=== PATIENT | male | born 1980 | race Caucasian/White ===

== ENCOUNTER 2023-02-24 19:32 | Emergency (ER) | payer SELFPAY ==
[2023-02-24 19:43] VITALS: BP 176/130; PULSE 92; RESP 18; TEMP 36.8; O2SAT 99; BMI 23.7
--- NOTE | 2023-02-24 19:59 | ED_ITS ---
HPI - Extremity Problem General: Chief complaint: Extremity Injury, Lower Stated complaint: insect bite to right foot Time Seen by Provider: 02/24/23 19:58 History of Present Illness: Patient comes in today for infection to the second toe on the right foot. Patient noticed the abnormality to the toe yesterday when looking at his feet. Patient noticed purulent drainage today. 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 . Patient appears nontoxic. Patient denies any fever, or nausea or vomiting. Patient reports no diabetes. Associated symptoms: Deny chest pain or fever(s) Review of Systems General: Reports: 10 or more systems reviewed and unremarkable except in HPI and below Const: Denies: fever(s) or body aches ENMT: Denies: throat pain Card: Denies: chest pain Resp: Denies: dyspnea GI: Denies: nausea, vomiting, diarrhea or constipation : Denies: difficulty urinating Musc: Reports: extremity pain Skin/Breast: Reports: nail changes Neuro: Denies: headache(s) Physical Exam Const: COMMON NORMALS: alert HENMT: COMMON NORMALS: normocephalic HEAD & SCALP: normocephalic THROAT: posterior oropharynx normal Neck/C-Spine: COMMON NORMALS: full ROM Resp: COMMON NORMALS: normal respiratory effort and clear to auscultation bilaterally AUSCULTATION: clear to auscultation bilaterally Cardio: COMMON NORMALS: regular rate RATE: regular rate Back/Pelvis: COMMON NORMALS: thoracic and lumbar spine normal to inspection Extremity: RIGHT LOWER EXTREMITY: Yes foot & digits (Redness to the distal second toe with purulent drainage from the nailbed) Right foot and digits: Yes inspection, Yes palpation, Yes ROM and Yes neurovascular exam Neuro: SENSORIUM/ORIENTATION: Yes alert Skin: NAILS: discolored (Second toe right foot, purulent drainage) Course Vital Signs: Vital signs: Vital Signs Temperature 98.3 F 02/24/23 19:43 Pulse Rate 92 02/24/23 19:43 Respiratory Rate 18 02/24/23 19:43 Blood Pressure 176/130 02/24/23 19:43 Pulse Oximetry 99 02/24/23 19:43 Oxygen Delivery Me thod Room Air 02/24/23 19:43 MDM - Extremity (Nontraumatic) Medical Decision Making Patient comes in for a concern for an insect bite to his toe. On exam we note purulent drainage coming out from under the second toe nailbed. Patient denies any nausea vomiting or fever. Patient denies diabetes. Patient does have neuropathy in both feet. Differential diagnosis includes but not limited to osteomyelitis, paronychia, cellulitis. X-ray noted no obvious signs of osteomyelitis. Patient was started on antibiotics Levaquin 500 mg daily by mouth. Patient was also recommended use mupirocin ointment to the nailbed. Patient reported understanding of care plan and need for follow-up for further evaluation and treatment. Discharge Plan Discharge Patient Disposition: Home Clinical Impression: Infection of nailbed of toe of right foot Peripheral neuropathy Qualifiers: Peripheral neuropathy type: polyneuropathy, other Qualified Code(s): G62.89 - Other specified polyneuropathies Condition: Stable Prescriptions: New levofloxacin 500 mg tablet 500 mg PO DAILY 10 Days Qty: 10 0RF Discharge Orders: Discharge ED (Routine); Ordered 02/24/23 Ordered By: Brooks Wang Discharge Diet: Usual diet Discharge Activity: Increase activity as tolerated Patient Instructions: Paronychia (ED) Activity Restrictions/Additional Instructions: Clean toe and foot with soap and water 2 times daily. Apply antibiotic ointment to the toenail and cover with gauze or clean sock. Take oral antibiotics as directed. Follow-up with application penetration tester for further evaluation and treatment. Return to ER for worsening symptoms such as fever greater than 100.4, increasing redness and swelling to the foot, or nausea and vomiting and inability to hold down fluids. Coding Level of Care Code ED Data Center Architect for Almaz Ureña
--- NOTE | 2023-02-24 20:08 | XRR_ITS ---
PROCEDURE INFORMATION: Exam: XR Right Foot Exam date and time: 02/24/2023 8:16 PM Age: 43 years old Clinical indication: Other: Insect bite; Prior surgery; Surgery date: 6+ months; Surgery type: RT foot; Additional info: Infection toe TECHNIQUE: Imaging protocol: Radiologic exam of the right foot. Views: 3 or more views. COMPARISON: No relevant prior studies available. FINDINGS: Bones/joints: Previous resection of the distal 1st metatarsal. Severe degenerative changes of the 1st metatarsophalangeal joint. Old healed fracture in the distal 2nd metatarsal. No acute fracture or bone destruction identified. Soft tissues: Normal. XR/XR foot RT min 3V* [id number] IMPRESSION: 1. No acute findings.
[2023-02-24] MEDS: mupirocin oint 22 gm 1 APPLIC TOPICAL (20:43)
[2023-02-24] MEDS: levoFLOXacin 500 mg Tablet PO (20:43)
--- NOTE | 2023-02-25 08:49 | DCPLANNER ---
Addendum entered by Azul Blount 02/26/23 07:33: manager cancer received the following message from the ortho clinic regarding follow up appointment: Pts vm is full will try to call again tomorrow Original Note: manager cancer had message to schedule a follow up appointment for patient with podiatry. manager cancer sent patients information to the front office staff at podiatry. Patients information will be printed and reviewed. Clinic will call patient with appointment information.
--- NOTE | 2023-02-27 13:14 | DCPLANNER ---
crm manager called patient due to no primary care physician - no answer at this time, voicemail box is full
== END 2023-02-24 20:51 | disposition home or self-care (01) ==
PROVIDERS: Emergency Provider Nurse Practitioner Family
DX: L03.031 Cellulitis of right toe (principal); G62.89 Other specified polyneuropathies
CPT/HCPCS: 73630; 99283

== ENCOUNTER 2023-05-08 08:55 | Emergency (ER) | payer SELFPAY ==
[2023-05-08 08:56] VITALS: BMI 20.5
[2023-05-08 09:08] VITALS: BP 154/105; PULSE 95; RESP 16; TEMP 37.4; O2SAT 99
--- NOTE | 2023-05-08 09:42 | W.ED.PSYCHS ---
HPI - Psych General: Chief Complaint: Psychiatric Symptoms Stated Complaint: psych eval Time Seen by Provider: 05/08/23 08:57 Source: patient Mode of arrival: ambulatory History of Present Illness: 43-year-old male presents emergency room via EMS. Evidently he got into an argument with his they are having some marital discord he had made threats about harming himself. He states he was just angry and had an explosive outburst. He states he has no plan on harming himself or anyone else. He has not previously been hospitalized for suicidal ideation he has not seen a [facility] here for psychiatry. 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 He is agreeable answers all questions his exam is normal. Onset (ago): minute(s) Duration: resolved prior to arrival History of same: No Relieving factors: none Exacerbating factors: other (Social stressor) Treatments prior to arrival: none Review of Systems Const: Denies: fever(s), chills, fatigue or malaise ENMT: Denies: throat pain, ear or mastoid pain, nasal discharge or nasal congestion Card: Denies: chest pain, edema, dyspnea on exertion or orthopnea Resp: Denies: dyspnea, productive cough or non-productive cough GI: Denies: abdominal pain, nausea, vomiting, hematemesis, coffee ground emesis, diarrhea, constipation, bloating, hematochezia or melena : Denies: flank pain, dysuria, urinary frequency or urinary urgency Skin/Breast: Denies: rash or pruritus Physical Exam Const: GENERAL APPEARANCE: cooperative and comfortable ORIENTATION/CONSCIOUSNESS: Yes awake, Yes oriented to person, Yes oriented to place and Yes oriented to time HENMT: COMMON NORMALS: normocephalic, atraumatic and hearing grossly normal bilaterally HEAD & SCALP: normocephalic and atraumatic Resp: COMMON NORMALS: normal respiratory effort, No retractions, No use of accessory muscles and clear to auscultation bilaterally AUSCULTATION: clear to auscultation bilaterally Cardio: COMMON NORMALS: regular rate, regular rhythm and No murmurs present (Cardio) RATE: regular rate RHYTHM: regular rhythm GI: COMMON NORMALS: Soft to palpation and No hepatosplenomegaly present AUSCULTATION: Yes normoactive bowel sounds PALPATION: Yes Soft to palpation, No Tenderness to palpation present (GI), No Guarding due to palpation present (GI) and Yes No hepatosplenomegaly present Extremity: COMMON NORMALS: normal to inspection, capillary refill normal, no clubbing, cyanosis or edema, no calf tenderness and no pedal edema Neuro: SENSORIUM/ORIENTATION: Yes oriented to person, Yes oriented to place and Yes oriented to time Skin: COMMON NORMALS: no rashes or lesions noted GENERAL SKIN EXAM: no rashes or lesions noted Course Vital Signs: Vital signs: Vital Signs Temperature 99.3 F 05/08/23 09:08 Pulse Rate 95 05/08/23 10:21 Respiratory Rate 16 05/08/23 10:21 Blood Pressure 150/80 05/08/23 10:21 Pulse Oximetry 99 05/08/23 10:21 Oxygen Delivery Me thod Room Air 05/08/23 09:08 MDM - Psych Medical Decision Making Patient admits to having made explosive comments about harming himself but states he has no intention of actually harming himself. He states he made a comment because of emotional outburst during the argument. He has not previously been seen at [facility] is not on any medications for mental health issues and he has no history of previous hospitalizations for mental health issues. I discussed with on-call psychiatry and we both agree at this point and probably would not be helped by admission. We did give him information and discussed with him the crisis intervention center as well as [facility]. Additionally in discussing with him prior to discharge he states he does have some house to go where he will not have to be in contact with his for now until things calm down. Return if he has further problems. Medical Records I reviewed the patient's medical records. Lab Data I reviewed the patient's lab results. Discharge Plan Discharge Patient Disposition: Home Clinical Impression: Depression, Adjustment disorder Condition: Stable Prescriptions: No Action No Known Home Medications Discharge Orders: Discharge ED (Routine); Ordered 05/08/23 Ordered By: Alek Covarrubias Discharge Diet: Usual diet Discharge Activity: Resume usual activity Patient Instructions: Opioid Safety, Pain Management Coding Level of Care Code ED Associate Director Regulatory Affairs for Almaz Ureña
[2023-05-08 10:21] VITALS: BP 150/80; PULSE 95; RESP 16; O2SAT 99
== END 2023-05-08 10:24 | disposition home or self-care (01) ==
PROVIDERS: Emergency Provider Family Medicine
DX: F32.A Depression, unspecified (principal); F43.20 Adjustment disorder, unspecified
CPT/HCPCS: 99283

== ENCOUNTER 2024-08-12 16:14 | Inpatient (IN) | payer SELFPAY ==
[2024-08-12 16:17] VITALS: BP 154/95; PULSE 68; RESP 16; TEMP 36.8; O2SAT 99
--- NOTE | 2024-08-12 17:48 | XRR_ITS ---
PROCEDURE INFORMATION: Exam: XR Left Foot Exam date and time: 08/12/2024 5:56 PM Age: 44 years old Clinical indication: Left; Patient HX: Lt foot pain; Ulcer to lt great toe; Neuropathy TECHNIQUE: Imaging protocol: Radiologic exam of the left foot. Views: 3 or more views. COMPARISON: CR XR foot LT min 3V* [id number] 04/15/2018 2:24 PM FINDINGS: Bones/joints: Mildly displaced oblique fracture of the 1st proximal phalanx. Areas of cortical erosion involving the 1st proximal and distal phalanges. No dislocation. Soft tissues: Soft tissue swelling and ulceration within the great toe. Soft tissue swelling extends along the dorsum of the foot. XR/XR foot LT min 3V* [id number] IMPRESSION: 1. Soft tissue swelling and ulceration of the great toe with findings compatible with acute osteomyelitis of the subjacent bone. 2. Mildly displaced oblique fracture of the 1st proximal phalanx.
--- NOTE | 2024-08-12 17:55 | ED_ITS ---
Documented by User: TRIP Parker 08/12/24 19:30 HPI - Wound/Laceration 2 General: Chief Complaint: Wound/Laceration Stated Complaint: Left big toe swollen Time Seen by Provider: 08/12/24 17:47 History of Present Illness: 44-year-old male patient with neuropathy to the bilateral lower extremity comes in today with an infected ulcer to the left foot. Patient reports worsening symptoms over the last 2 weeks. Patient has taken some from a previous prescription. Patient presents with significant swelling of the great toe on the left foot. Patient also has an ulcer to the ball of the foot. Sloughing of the tissue is noted. Redness extends up to the dorsal midfoot. Patient reported chills last night. Spouse reports that he has felt hot on and off for the last 2 weeks. Patient has limited resources lacking insurance and and financial income. Related Data Home Medications Medication Instructions Recorded Confirmed No Known Home Medications 05/08/23 05/08/23 Allergies Allergy/AdvReac Type Severity Reaction Status Date / Time Penicillins Allergy ALGY-Anaphy Verified 08/12/24 16:25 laxis Review of Systems 2 General: Reports: 10 or more systems reviewed and unremarkable except in HPI and below Musc: Reports: extremity pain and extremity swelling Physical Exam 2 Const: COMMON NORMALS: alert HENMT: COMMON NORMALS: normocephalic HEAD & SCALP: normocephalic Neck/C-Spine: COMMON NORMALS: full ROM Resp: COMMON NORMALS: normal respiratory effort and clear to auscultation bilaterally AUSCULTATION: clear to auscultation bilaterally Cardio: COMMON NORMALS: regular rate RATE: regular rate Back/Pelvis: COMMON NORMALS: thoracic and lumbar spine normal to inspection Extremity: LEFT LOWER EXTREMITY: Yes foot & digits (Significant swelling first toe, chronic ulcer MTP first, redness midfoot) Left foot and digits: Yes inspection Neuro: SENSORIUM/ORIENTATION: Yes alert Skin: NARRATIVE SKIN EXAM: Swelling to the great toe of the left foot. Erythema and sloughing of skin with a ulcer to the ball of the left foot at first MTP joint Course 2 Vital Signs: Vital signs: Vital Signs Temperature 98.4 F 08/12/24 20:49 Pulse Rate 84 08/12/24 20:49 Respiratory Rate 14 08/12/24 20:49 Blood Pressure 147/94 08/12/24 20:49 Pulse Oximetry 100 1004/24 20:49 Oxygen Delivery Me thod Room Air 08/12/24 20:49 MDM - Wound/Laceration Medical Decision Making 44-year-old male patient comes in today with significant redness and swelling to the great toe of the left foot. Patient reports chills at night occasional nausea and fever for the last 2 weeks. Patient has been taken some amoxicillin from prior prescription. On exam we note a chronic wound ulcer to the ball of the foot at the first MTP joint. Patient has significant redness and swelling to the toe. Patient has an ingrown nail on the foot 2. Pedis pulses intact. Patient denies diabetes but reports peripheral neuropathy and complex regional pain syndrome. Vital signs are normal. Differential diagnosis includes osteomyelitis, chronic wound ulcer with infection, cellulitis of the foot, paronychia with ingrown nail. 1842, discussed patient with Dr. Rangel on-call podiatry regarding osteomyelitis in the great toe and the extensive cellulitis with probable gangrene. He agreed to plan for surgical debridement in the morning. Recommend keeping him n.p.o. after midnight he will see him this evening. 1927, reviewed patient with Dr. Pierre who graciously accepted patient for admission to hospitalist services and recommended vancomycin and Zosyn for further antibiotic coverage. Discussed patient with Dr. Murdock, attending ER physician. He agreed to place admission orders and understands to keep patient n.p.o. after midnight. Patient reports understanding of care plan of admission for surgical debridement of wound and antibiotic therapy. Lab Data 08/12/24 18:33 08/12/24 18:33 Radiology Impressions Foot X-Ray 08/12/24 17:48 IMPRESSION: 1. Soft tissue swelling and ulceration of the great toe with findings compatible with acute osteomyelitis of the subjacent bone. 2. Mildly displaced oblique fracture of the 1st proximal phalanx. Foot CT 08/12/24 18:29 IMPRESSION: 1. Cellulitis of the great toe with areas of ulceration. Subcutaneous gas locules may be related to ulceration, though gas producing organisms are not excluded. 2. Findings compatible with acute osteomyelitis involving the proximal and distal phalanges of the great toe. 3. Mildly displaced fracture of the 1st proximal phalanx. 4. Soft tissue edema throughout the foot. Laboratory Results WBC 10.59 10^3/uL (3.29-11.43) 08/12/24 18: RBC 4.34 10^6/uL (3.85-5.65) 08/12/24 18: Hgb 11.60 g/dL (11.27-16.99) 08/12/24 18: Hct 36.5 % (37-53) L 08/12/24 18: MCV 84.1 fl (82-101) 08/12/24 18: MCH 26.7 pg (27-33) L 08/12/24 18: MCHC 31.8 g/dL (30-55) 08/12/24 18: RDW 14.0 % (12.1-15.1) 08/12/24 18: Plt Count 250 10^3/cmm (157-399) 08/12/24 18: MPV 10.4 fL (7.4-10.4) 08/12/24 18: Neut % (Auto) 66.3 % 08/12/24 18: Lymph % (Auto) 19.0 % 08/12/24 18:33 Sebastian % (Auto) 8.0 % 08/12/24 18:33 Eos % (Auto) 5.7 % 08/12/24 18: Baso % (Auto) 0.7 % 08/12/24 18: Neut # (Auto) 7.03 10^3/uL (1.8-7.7) 08/12/24 18: Lymph # (Auto) 2.0 10^3/uL (0.8-4.8) 08/12/24 18: Sebastian # (Auto) 0.9 10^3/uL (0.2-0.9) 08/12/24 18: Eos # (Auto) 0.6 10^3/uL (0.0-0.8) 08/12/24 18: Baso # (Auto) 0.1 10^3/uL (0.0-0.1) 08/12/24 18: Nucleated RBC % (auto) 0 % 08/12/24 18: Nucleated RBCs # 0.0 /100WBC 08/12/24 18:33 ESR 15 mm/hr (0-10) H 08/12/24 18:33 Sodium 136 mmol/L (136-145) 08/12/24 18:33 Potassium 3.3 mmol/L (3.5-5.1) L 08/12/24 18:33 Chloride 99 mmol/L (98-107) 08/12/24 18:33 Carbon Dioxide 27 mmol/L (22-29) 08/12/24 18:33 Anion Gap 13.3 (5-19) 08/12/24 18:33 BUN 12 mg/dL (6-20) 08/12/24 18:33 Creatinine 0.9 mg/dL (0.7-1.2) 08/12/24 18:33 GFR Calculation 92.1 mL/min (90-130) 08/12/24 18:33 Glucose 116 mg/dL (65-115) H 08/12/24 18:33 Calculated Osmolality 283 mOsm/kg (285-295) L 08/12/24 18:33 Lactic Acid 1.0 mmol/L (0.5-2.2) 08/12/24 18:33 Calcium 8.8 mg/dL (8.5-10.5) 08/12/24 18:33 Iron 16 ug/dL (59-158) L 08/12/24 18:33 TIBC 249 mcg/dl 08/12/24 18:33 % Saturation 6.4 % (20-50) L 08/12/24 18:33 Unsat Iron Binding 233 ug/dL (112-347) 08/12/24 18:33 Total Bilirubin 0.3 mg/dL (0.15-1.2) 08/12/24 18:33 AST 10 U/L (0-40) 08/12/24 18:33 ALT 10 U/L (0-41) 08/12/24 18:33 Alkaline Phosphatase 99 U/L (40-130) 08/12/24 18:33 C-Reactive Protein 116.1 mg/L (0.0-4.9) H 08/12/24 18:33 Total Protein 7.3 g/dL (6.6-8.7) 08/12/24 18:33 Albumin 3.8 g/dL (3.5-5.2) 08/12/24 18:33 Globulin 3.5 g/dL (1.3-4.6) 08/12/24 18:33 Vitamin B12 284 pg/mL (232-1245) 08/12/24 18:33 Procalcitonin 1.66 ng/mL (0-0.5) H 08/12/24 18:33 TSH 2.90 uIU/mL (0.27-4.20) 08/12/24 18:33 XR interpretation done by ED provider, pending radiology final review Discharge Plan Discharge Patient Disposition: Admitted As Inpatient Admit Provider: Henrique Carrington Clinical Impression: Osteomyelitis Condition: Stable Coding Level of Care Code ED Program Support Clerk for Chg Fwd Documented by User: Tito Murdock DO 08/12/24 21:54 HPI - Wound/Laceration 2 General: Chief Complaint: Wound/Laceration Stated Complaint: Left big toe swollen Time Seen by Provider: 08/12/24 17:47 Related Data Home Medications Medication Instructions Recorded Confirmed No Known Home Medications 05/08/23 05/08/23 Allergies Allergy/AdvReac Type Severity Reaction Status Date / Time Penicillins Allergy ALGY-Anaphy Verified 08/12/24 16:25 laxis Course 2 Vital Signs: Vital signs: Vital Signs Temperature 98.4 F 08/12/24 20:49 Pulse Rate 84 08/12/24 20:49 Respiratory Rate 14 08/12/24 20:49 Blood Pressure 147/94 08/12/24 20:49 Pulse Oximetry 100 08/12/24 20:49 Oxygen Delivery Me thod Room Air 08/12/24 20:49 MDM - Wound/Laceration Medical Decision Making 44-year-old male patient comes in today with significant redness and swelling to the great toe of the left foot. Patient reports chills at night occasional nausea and fever for the last 2 weeks. Patient has been taken some amoxicillin from prior prescription. On exam we note a chronic wound ulcer to the ball of the foot at the first MTP joint. Patient has significant redness and swelling to the toe. Patient has an ingrown nail on the foot 2. Pedis pulses intact. Patient denies diabetes but reports peripheral neuropathy and complex regional pain syndrome. Vital signs are normal. Differential diagnosis includes osteomyelitis, chronic wound ulcer with infection, cellulitis of the foot, paronychia with ingrown nail. 184, discussed patient with Dr. Rangel on-call podiatry regarding osteomyelitis in the great toe and the extensive cellulitis with probable gangrene. He agreed to plan for surgical debridement in the morning. Recommend keeping him n.p.o. after midnight he will see him this evening. 1927, reviewed patient with Dr. Pierre who graciously accepted patient for admission to hospitalist services and recommended vancomycin and Zosyn for further antibiotic coverage. Discussed patient with Dr. Murdock, attending ER physician. He agreed to place admission orders and understands to keep patient n.p.o. after midnight. Patient reports understanding of care plan of admission for surgical debridement of wound and antibiotic therapy. This patient was originally seen by TRIP Villagran.? I agree with his history, evaluation, and treatment. Lab Data 08/12/24 18:33 08/12/24 18:33 Radiology Impressions Foot X-Ray 08/12/24 17:48 IMPRESSION: 1. Soft tissue swelling and ulceration of the great toe with findings compatible with acute osteomyelitis of the subjacent bone. 2. Mildly displaced oblique fracture of the 1st proximal phalanx. Foot CT 08/12/24 18:29 IMPRESSION: 1. Cellulitis of the great toe with areas of ulceration. Subcutaneous gas locules may be related to ulceration, though gas producing organisms are not excluded. 2. Findings compatible with acute osteomyelitis involving the proximal and distal phalanges of the great toe. 3. Mildly displaced fracture of the 1st proximal phalanx. 4. Soft tissue edema throughout the foot. Laboratory Results WBC 10.59 10^3/uL (3.29-11.43) 08/12/24 18: RBC 4.34 10^6/uL (3.85-5.65) 08/12/24 18: Hgb 11.60 g/dL (11.27-16.99) 08/12/24 18: Hct 36.5 % (37-53) L 08/12/24 18: MCV 84.1 fl (82-101) 08/12/24 18: MCH 26.7 pg (27-33) L 08/12/24 18: MCHC 31.8 g/dL (30-55) 08/12/24 18: RDW 14.0 % (12.1-15.1) 08/12/24 18: Plt Count 250 10^3/cmm (157-399) 08/12/24 18:33 MPV 10.4 fL (7.4-10.4) 08/12/24 18: Neut % (Auto) 66.3 % 08/12/24 18:33 Lymph % (Auto) 19.0 % 08/12/24 18:33 Sebastian % (Auto) 8.0 % 08/12/24 18: Eos % (Auto) 5.7 % 08/12/24 18: Baso % (Auto) 0.7 % 08/12/24 18: Neut # (Auto) 7.03 10^3/uL (1.8-7.7) 08/12/24 18: Lymph # (Auto) 2.0 10^3/uL (0.8-4.8) 08/12/24 18:33 Sebastian # (Auto) 0.9 10^3/uL (0.2-0.9) 08/12/24 18: Eos # (Auto) 0.6 10^3/uL (0.0-0.8) 08/12/24 18:33 Baso # (Auto) 0.1 10^3/uL (0.0-0.1) 08/12/24 18: Nucleated RBC % (auto) 0 % 08/12/24 18: Nucleated RBCs # 0.0 /100WBC 08/12/24 18:33 ESR 15 mm/hr (0-10) H 08/12/24 18:33 Sodium 136 mmol/L (136-145) 08/12/24 18: Potassium 3.3 mmol/L (3.5-5.1) L 08/12/24 18: Chloride 99 mmol/L (98-107) 08/12/24 18: Carbon Dioxide 27 mmol/L (22-29) 08/12/24 18:33 Anion Gap 13.3 (5-19) 08/12/24 18:33 BUN 12 mg/dL (6-20) 08/12/24 18:33 Creatinine 0.9 mg/dL (0.7-1.2) 08/12/24 18:33 GFR Calculation 92.1 mL/min (90-130) 08/12/24 18:33 Glucose 116 mg/dL (65-115) H 08/12/24 18:33 Calculated Osmolality 283 mOsm/kg (285-295) L 08/12/24 18:33 Lactic Acid 1.0 mmol/L (0.5-2.2) 08/12/24 18:33 Calcium 8.8 mg/dL (8.5-10.5) 08/12/24 18:33 Iron 16 ug/dL (59-158) L 08/12/24 18:33 TIBC 249 mcg/dl 08/12/24 18:33 % Saturation 6.4 % (20-50) L 08/12/24 18:33 Unsat Iron Binding 233 ug/dL (112-347) 08/12/24 18:33 Total Bilirubin 0.3 mg/dL (0.15-1.2) 08/12/24 18:33 AST 10 U/L (0-40) 08/12/24 18:33 ALT 10 U/L (0-41) 08/12/24 18:33 Alkaline Phosphatase 99 U/L (40-130) 08/12/24 18:33 C-Reactive Protein 116.1 mg/L (0.0-4.9) H 08/12/24 18:33 Total Protein 7.3 g/dL (6.6-8.7) 08/12/24 18:33 Albumin 3.8 g/dL (3.5-5.2) 08/12/24 18:33 Globulin 3.5 g/dL (1.3-4.6) 08/12/24 18:33 Vitamin B12 284 pg/mL (232-1245) 08/12/24 18:33 Procalcitonin 1.66 ng/mL (0-0.5) H 08/12/24 18:33 TSH 2.90 uIU/mL (0.27-4.20) 08/12/24 18:33 Discharge Plan Discharge Patient Disposition: Admitted As Inpatient Admit Provider: Henrique Carrington Clinical Impression: Osteomyelitis Condition: Stable Coding Level of Care Code ED Program Support Clerk for Chg Fwd
--- NOTE | 2024-08-12 18:29 | CTR_ITS ---
PROCEDURE INFORMATION: Exam: CT Left Lower Extremity, Foot Exam date and time: 08/12/2024 7:01 PM Age: 44 years old Clinical indication: Cellulitis; Toes; Patient HX: Swelling and redness to left great toe. History of diabetic neuropathy. ; Additional info: Osteomyelitis great toe TECHNIQUE: Imaging protocol: CT of the left lower extremity with intravenous contrast was performed. Exam focused on the foot. Radiation optimization: All CT scans at this facility use at least one of these dose optimization techniques: automated exposure control; mA and/or kV adjustment per patient size (includes targeted exams where dose is matched to clinical indication); or iterative reconstruction. Contrast material: OMNI 350; Contrast volume: 100 ml; Contrast route: INTRAVENOUS (IV); COMPARISON: CR (LOW EXM, ) 08/12/2024 5:56 PM RADIATION DOSE METRICS: Total DLP (mGy-cm): 260.55 FINDINGS: Bones/joints: Areas of cortical erosion involving the proximal and distal phalanges of the great toe. For example, there is erosion of the base of the 1st distal phalanx as well as along the medial aspect of the distal portion of the 1st proximal phalanx. There appears to be a mildly displaced oblique fracture of the 1st proximal phalanx along with areas of cortical erosion. Moderate degenerative changes of the midfoot. Soft tissues: Diffuse subcutaneous soft tissue edema throughout the foot, slightly more pronounced along the dorsum of the foot. Increased prominent vascularity. Diffuse soft tissue edema within the great toe with areas of ulceration as well as multiple small subcutaneous gas locules. CT/CT foot LT w con [id number] IMPRESSION: 1. Cellulitis of the great toe with areas of ulceration. Subcutaneous gas locules may be related to ulceration, though gas producing organisms are not excluded. 2. Findings compatible with acute osteomyelitis involving the proximal and distal phalanges of the great toe. 3. Mildly displaced fracture of the 1st proximal phalanx. 4. Soft tissue edema throughout the foot.
[2024-08-12] MEDS: levofloxacin-dextrose 5 % 750 MG/150 ML PREMIX 100 MG IV (18:48)
[2024-08-12 18:49] VITALS: RESP 16
[2024-08-12 18:52] LABS: Basophils # 0.1 10^3/uL (0.0-0.1); Basophils % 0.7 %; Eosinophils # 0.6 10^3/uL (0.0-0.8); Eosinophils % 5.7 %; Hematocrit 36.5 % (37-53); Mean Corpuscular HGB Conc 31.8 g/dL (30-55); Mean Corpuscular Hemoglobin 26.7 pg (27-33); Mean Corpuscular Volume 84.1 fl (82-101); Mean Platelet Volume 10.4 fL (7.4-10.4); Monocytes # 0.9 10^3/uL (0.2-0.9); Neutrophils # 7.03 10^3/uL (1.8-7.7); Neutrophils % 66.3 %; Nucleated Red Blood Cells % 0 %; Platelet Count 250 10^3/cmm (157-399); Red Blood Count 4.34 10^6/uL (3.85-5.65); White Blood Count 10.59 10^3/uL (3.29-11.43)
[2024-08-12 19:07] LABS: Erythrocyte Sedimentation Rate 15 mm/hr (0-10)
[2024-08-12] MEDS: iohexol 350 mg/mL 500 mL Btl (per mL) IV (19:07)
[2024-08-12 19:20] LABS: Alanine Aminotransferase 10 U/L (0-41); Albumin Level 3.8 g/dL (3.5-5.2); Alkaline Phosphatase 99 U/L (40-130); Anion Gap 13.3 (5-19); Aspartate Amino Transferase 10 U/L (0-40); Blood Urea Nitrogen 12 mg/dL (6-20); C Reactive Protein 116.1 mg/L (0.0-4.9); Calcium 8.8 mg/dL (8.5-10.5); Carbon Dioxide 27 mmol/L (22-29); Chloride 99 mmol/L (98-107); Creatinine Clr Calc Pharmacy 124.3444; Globulin 3.5 g/dL (1.3-4.6); Glomerular Filtration Rate 92.1 mL/min (90-130); Glucose 116 mg/dL (65-115); Osmolality Calculated 283 mOsm/kg (285-295); Potassium 3.3 mmol/L (3.5-5.1); Sodium 136 mmol/L (136-145); Total Bilirubin 0.3 mg/dL (0.15-1.2); Total Protein 7.3 g/dL (6.6-8.7)
--- NOTE | 2024-08-12 19:21 | P.CONIM_ITS ---
Providers/Reason For Consult 2 Consulting Physician/Specialty*: Eduardo Rangel D.P.M. Reason for Consult*: Gangrene left great toe History of Present Illness History of Present Illness Rocky Watt is a 44 year old male presents with a worsening of left great toe wound over the past 2 weeks has been red and draining with foul odor, he states over the past 2 to 3 days it got more red, swollen and drainage became more intense, started feeling subjective chills, denies subjective fevers, denies lack of appetite or malaise. Patient has idiopathic neuropathy, nondiabetic. Had a superficial blister pop at the ball of his right foot denies redness or drainage. Patient has a history of osteomyelitis of the right foot. Patient states he does not go barefoot however he is been over active on his feet for long periods of time. Review of Systems 2 General: Reports: 10 or more systems reviewed and unremarkable except in HPI and below Const: Denies: fever(s) or chills Eyes: Denies: change in vision Card: Denies: chest pain or palpitations Resp: Denies: dyspnea or productive cough GI: Denies: abdominal pain, nausea or vomiting : Denies: flank pain Musc: Reports: extremity swelling, joint stiffness and deformity Skin/Breast: Reports: erythema, sores, changes in skin color, dry skin, nail changes and change in hair Neuro: Reports: numbness in extremities, sensory changes and difficulty walking Psych: Denies: suicidal ideation Endo: Denies: change in body appearance Nelson/Lymph: Denies: tender lymph nodes Medications/Allergies Home Medications Medication Instructions Recorded Confirmed Last Taken Type No Known Home Medications 05/08/23 05/08/23 Unknown History Allergies Allergy/AdvReac Type Severity Reaction Status Date / Time Penicillins Allergy ALGY-Anaphy Verified 08/12/24 16:25 laxis Current Medications Generic Name Dose Route Start Last Admin Trade Name Freq PRN Reason Stop Dose Admin Levofloxacin/Dextrose 750 mg in 150 mls @ 100 mls/hr 08/12/24 18:18 08/12/24 18:48 Levaquin-D5w IV 08/12/24 19:47 100 mls/hr ONCE ONE Administration Protocol Vitals/I&O/Wt Last Vital Signs Temp 98.2 F 08/12/24 16:17 Pulse 68 08/12/24 16:17 Resp 16 08/12/24 18:49 BP 154/95 08/12/24 16:17 Pulse Ox 99 08/12/24 16:17 O2 Del Method Room Air 08/12/24 18:49 Weight last 48 hrs Weight 186 lb Physical Exam 2 Narrative: GENERAL: Patient is alert and oriented ?3 and in no acute distress. The following is a focused bilateral lower extremity exam. Accompanied by his and daughter. VASCULAR: Dorsalis pedis palpable +2 left and right foot. Posterior tibial arteries palpable +2. Capillary refill time less than 3 seconds to the distal hallux right foot and delayed left foot greater than 5 seconds. Calf is supple and nontender proximally and distally. Pedal hair growth present. Edema to the left forefoot localized at left great toe and medial column. NEUROLOGICAL: Protective sensation intact 0/10 sites, tested with Charlotte Esmer monofilament to bilateral feet. DERMATOLOGICAL: Full-thickness wound with surrounding erythema encompassing the entire left great toe, wound probes directly to bone with purulent drainage, wound is littered with pet hair, has maceration, malodorous purulent drainage, able to probe to distal phalanx and proximal phalanx, wound measures 1 cm x 1 cm and probes 1 cm deep. Superficial wound grade 1 wound limited to breakdown of skin at the ball of the right foot subsecond and third metatarsal head without erythema warmth or drainage. Dystrophic toenails. MUSCULOSKELETAL: Hallux malleus nonreducible to the right foot and reducible hammertoe deformities of digits 2, 3, 4, 5 right foot, tailor's bunion right foot. CARDIOVASCULAR: S1, S2, normal rate, normal rhythm. Dorsalis pedis and posterior tibial arteries palpable. LUNGS: Clear to auscltation, no use of acessory muscles, no crackles or wheezes. Data 08/12/24 18:33 08/12/24 18:33 Micro: Microbiology 08/12/24 18:35 Blood Culture - Preliminary Blood SPECIMEN COLLECTED 08/12/24 18:33 Blood Culture - Preliminary Blood SPECIMEN COLLECTED Other data: XR/XR foot LT min 3V* [id number] IMPRESSION: 1. Soft tissue swelling and ulceration of the great toe with findings compatible with acute osteomyelitis of the subjacent bone. 2. Mildly displaced oblique fracture of the 1st proximal phalanx. Dictated By: Ron Seymour MD Signed By: Ron Seymour MD igned Date/Time: 08/12/241945 DD/ 55 CT/CT foot LT w con [id number] IMPRESSION: 1. Cellulitis of the great toe with areas of ulceration. Subcutaneous gas locules may be related to ulceration, though gas producing organisms are not excluded. 2. Findings compatible with acute osteomyelitis involving the proximal and distal phalanges of the great toe. 3. Mildly displaced fracture of the 1st proximal phalanx. 4. Soft tissue edema throughout the foot. 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 The wound was debrided of hyperkeratotic rim and devitalized and fibrotic tissue down to bone, being the deepest level of debridement. Predebridement measurements: 1 cm x 1 cm x 1 cm Postdebridement measurements: 1.5 cm x 1.5 cm x 1.3 cm Hemostasis: Pressure Irrigation: sterile saline Dressing: Betadine wet-to-dry Estimated Blood Loss: minimal Offloading: Nonweightbearing (2) Idiopathic neuropathy: (3) Cellulitis of left foot: (4) Gangrene of toe of left foot: Plan 44-year-old male with idiopathic neuropathy presents with gangrene left great toe. Patient being admitted to the hospital service, greatly appreciate hospitalist for medical management WBC 10.59 ESR 15 CRP 116.1 mg/L X-ray left foot pathologic fracture of the first proximal phalanx head and erosive changes at proximal and distal phalanx left great toe consistent with osteomyelitis CT scan shows cellulitis, subcutaneous gas locules and acute osteomyelitis of the proximal and distal phalanx of the left great toe, mildly displaced fracture of the proximal phalanx head. N.p.o. at midnight Patient wishes to proceed with left great toe imitation for source control of infection. Scheduled for left great toe amputation 08/13/2024 8 AM Consult Attestations 2 Medical Necessity Statement: Gangrene with acute osteomyelitis left great toe and surrounding cellulitis requires hospital admission, IV antibiotics and surgical amputation. 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
[2024-08-12 20:00] VITALS: RESP 16
[2024-08-12] MEDS: vancomycin 1,000 MG in sodium chloride 0.9% 250 ML 250 MG IV (20:16)
[2024-08-12 20:17] LABS: Procalcitonin 1.66 ng/mL (0-0.5)
[2024-08-12 20:21] VITALS: BP 137/96; PULSE 85; O2SAT 98
[2024-08-12 20:49] VITALS: BP 147/94; PULSE 84; RESP 14; TEMP 36.9; O2SAT 100
--- NOTE | 2024-08-12 20:58 | PHA.VACGOAL ---
Vancomycin Goal - Goal Vancomycin Goal:: 15-20 mg/L Vancomycin Indication:: Osteo - Therapy Day of therpy:: Day []of [] . Actual body weight (kg): 186 lb - Data Labs: WBC 10.59 10^3/uL (3.29-11.43) 08/12/24 18:33 RBC 4.34 10^6/uL (3.85-5.65) 08/12/24 18:33 Hgb 11.60 g/dL (11.27-16.99) 08/12/24 18:33 Hct 36.5 % (37-53) L 08/12/24 18:33 MCV 84.1 fl (82-101) 08/12/24 18:33 MCH 26.7 pg (27-33) L 08/12/24 18:33 MCHC 31.8 g/dL (30-55) 08/12/24 18:33 RDW 14.0 % (12.1-15.1) 08/12/24 18:33 Sodium 136 mmol/L (136-145) 08/12/24 18:33 Potassium 3.3 mmol/L (3.5-5.1) L 08/12/24 18:33 Chloride 99 mmol/L (98-107) 08/12/24 18:33 Carbon Dioxide 27 mmol/L (22-29) 08/12/24 18:33 Anion Gap 13.3 (5-19) 08/12/24 18:33 BUN 12 mg/dL (6-20) 08/12/24 18:33 Creatinine 0.9 mg/dL (0.7-1.2) 08/12/24 18:33 GFR Calculation 92.1 mL/min (90-130) 08/12/24 18:33 Treatment plan:: new consult Regimen:: 2500 MG LOADING DOSE 1000MG Q8H PER PROTOCOL
[2024-08-12 21:37] LABS: Iron 16 ug/dL (59-158); Percent Saturation 6.4 % (20-50); Total Iron Binding Capacity 249 mcg/dl; Unsaturated Iron Binding 233 ug/dL (112-347); Vitamin B12 284 pg/mL (232-1245)
[2024-08-12] MEDS: sodium chloride 0.9% 1,000 ML 75 ML IV (21:44)
[2024-08-12] MEDS: heparin 5,000 unit/mL INJ 1 mL 5000 UNIT SUBCUT (21:45)
[2024-08-12] MEDS: meropenem 1,000 mg SDV 1000 MG IVP (21:45)
[2024-08-12 21:50] VITALS: BMI 25.2
--- NOTE | 2024-08-12 21:58 | P.HP_ITS ---
Providers/Chief Complaint 2 Admitting Physician: Henrique Carrington MD Chief Complaint: Left big toe swollen History of Present Illness Rocky Watt is a 44 year old male who is currently admitted to the hospital with a worsening left great toe wound over the past 2 weeks. There has been acute worsening over the past 2 to 3 days where there has been more drainage. He also endorses subjective chills and fevers. He carries a history of peripheral neuropathy. Does not have diabetes. Does have a history of osteomyelitis of the right foot in the past. Review of Systems 2 General: Reports: 10 or more systems reviewed and unremarkable except in HPI and below Const: Denies: fever(s), chills or body aches Eyes: Denies: change in vision, blurry vision or photophobia ENMT: Reports: hoarseness; Denies: throat pain, enlarged tonsils, odynophagia or nasal congestion Card: Denies: chest pain, palpitations, irregular heart rhythm, edema, swelling of feet/ankles, lightheadedness, pre-syncope, dyspnea on exertion or orthopnea Resp: Denies: dyspnea, productive cough, non-productive cough, wheezing, stridor, pain on inspiration, change in phlegm color, hemoptysis or chest congestion GI: Denies: abdominal pain, nausea, vomiting, hematemesis, coffee ground emesis, dysphagia, heartburn, diarrhea, constipation, GI cramping, change in stool character, hematochezia or melena : Denies: flank pain, dysuria, urinary frequency, urinary urgency, urinary hesitancy or hematuria Musc: Denies: neck pain, back pain, extremity pain, joint swelling, joint warmth or deformity Neuro: Denies: headache(s), numbness in extremities, weakness in extremities, sensory changes, difficulty walking, frequent falls, dizziness, vertigo, behavioral changes, Slurred speech present or seizure-like activity Psych: Denies: anxiety, depression, suicidal ideation or homicidal ideation Endo: Denies: polyuria, polydipsia, tired all the time, cold intolerance or hot flashes Nelson/Lymph: Denies: easy bruising or easy bleeding Medications/Allergies Home Medications Medication Instructions Recorded Confirmed Last Taken Type No Known Home Medications 05/08/23 05/08/23 Unknown History Allergies Allergy/AdvReac Type Severity Reaction Status Date / Time Penicillins Allergy ALGY-Anaphy Verified 08/12/24 16:25 laxis Vitals/I&O/Wt Last Vital Signs Temp 98.4 F 08/12/24 20:49 Pulse 84 08/12/24 20:49 Resp 14 08/12/24 20:49 BP 147/94 08/12/24 20:49 Pulse Ox 100 08/12/24 20:49 O2 Del Method Room Air 08/12/24 20:49 08/12/24 08/12/24 08/12/24 06:59 14:59 22:59 Intake Total 400 / 400 Balance 400 / 400 Weight last 48 hrs Weight 84.368 kg Physical Exam 2 Narrative: General: No acute distress, AO x3 HEENT: PERRLA, pupils bilaterally equal and reactive, pallors not present Chest: Normal vesicular breath sounds, no added sounds, equal good air entry bilaterally CVS: S1-S2 regular, no murmurs, no tachycardia, no gallops, no rubs Abdomen: Soft, nontender, no organomegaly, bowel sounds present Neuro: No focal deficits, no facial deformity, AO x3, power 5/5 in all limbs Data 08/13/24 03:50 08/13/24 03:50 Micro: Microbiology 08/12/24 18:35 Blood Culture - Preliminary Blood SPECIMEN COLLECTED 08/12/24 18:33 Blood Culture - Preliminary Blood SPECIMEN COLLECTED Other data: Date of Service: 08/12/24 Procedure(s): CT foot LT w con [id number] CT/CT foot LT w con [id number] IMPRESSION: 1. Cellulitis of the great toe with areas of ulceration. Subcutaneous gas locules may be related to ulceration, though gas producing organisms are not excluded. 2. Findings compatible with acute osteomyelitis involving the proximal and distal phalanges of the great toe. 3. Mildly displaced fracture of the 1st proximal phalanx. 4. Soft tissue edema throughout the foot. 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 CT showing changes compatible with acute of osteomyelitis involving the proximal and distal phalanges of the great toe. Mildly displaced fracture of the first proximal phalanx. Start empiric antibiotic coverage Plan to go to the OR tomorrow with podiatry N.p.o. after midnight HbA1c of 5.9 Has a history of peripheral neuropathy. 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
[2024-08-12 22:20] LABS: Bilirubin Urine Negative (Negative); Blood Urine Negative (Negative); Glucose Urine UA Negative (Normal); Ketones Urine Negative (Negative); Leukocyte Esterase Urine Negative (Negative); Nitrate Urine Negative (Negative); Protein Urine 1+ (Negative); Urine Appearance Clear (CLEAR); Urine Color Yellow (Yellow); pH Urine 5.5 (5-7)
[2024-08-12] MEDS: vancomycin 1,500 MG/300 ML PIGGYBACK 200 MG IV (22:23)
[2024-08-12 22:25] LABS: Add Urine Microscopic? YES; Bacteria Urine None Seen /hpf; Hyaline Casts Urine 0-4 /lpf; Squamous Epithelial Cell Urine 0-5 /hpf (0-5); Universal Test for UA Present (0); WBC Urine 0-5 /hpf (0-5)
[2024-08-12 22:39] LABS: Specific Gravity, Urine 1.085 (1.005-1.030); Sperm Urine 1+ /hpf
[2024-08-12] MEDS: pantoprazole DR 40 mg Tablet PO (22:54)
[2024-08-13] VITALS (20 sets, daily range): BP systolic 116–170; BP diastolic 61–97; PULSE 70–117; RESP 14–18; TEMP 36.2–37.2; O2SAT 94–100
[2024-08-13] MEDS: morphine 4 mg/mL SDV 1 mL 2 MG IVP ×2 (03:12→20:36)
[2024-08-13 04:06] LABS: Basophils # 0.1 10^3/uL (0.0-0.1); Basophils % 0.7 %; Eosinophils # 0.8 10^3/uL (0.0-0.8); Eosinophils % 8.1 %; Hematocrit 35.6 % (37-53); Mean Corpuscular HGB Conc 32.3 g/dL (30-55); Mean Corpuscular Hemoglobin 27.4 pg (27-33); Mean Platelet Volume 10.4 fL (7.4-10.4); Monocytes # 0.9 10^3/uL (0.2-0.9); Monocytes % 8.7 %; Neutrophils # 6.25 10^3/uL (1.8-7.7); Neutrophils % 62.2 %; Nucleated Red Blood Cells % 0 %; Platelet Count 253 10^3/cmm (157-399); Red Blood Count 4.19 10^6/uL (3.85-5.65); Red Cell Distribution Width 14.2 % (12.1-15.1); White Blood Count 10.04 10^3/uL (3.29-11.43)
[2024-08-13 04:21] LABS: Estmated Average Glucose 123; Hemoglobin A1C 5.9 % (4.0-6.0)
[2024-08-13 04:23] LABS: Alanine Aminotransferase 7 U/L (0-41); Albumin Level 3.6 g/dL (3.5-5.2); Alkaline Phosphatase 102 U/L (40-130); Anion Gap 13.7 (5-19); Aspartate Amino Transferase 11 U/L (0-40); Blood Urea Nitrogen 9 mg/dL (6-20); Calcium 8.5 mg/dL (8.5-10.5); Carbon Dioxide 24 mmol/L (22-29); Chloride 103 mmol/L (98-107); Globulin 3.3 g/dL (1.3-4.6); Glomerular Filtration Rate 105.5 mL/min (90-130); Glucose 118 mg/dL (65-115); Magnesium 1.8 mg/dL (1.7-2.3); Osmolality Calculated 284 mOsm/kg (285-295); Phosphorus 2.6 mg/dL (2.5-4.5); Potassium 3.7 mmol/L (3.5-5.1); Sodium 137 mmol/L (136-145); Total Bilirubin 0.3 mg/dL (0.15-1.2); Total Protein 6.9 g/dL (6.6-8.7)
[2024-08-13 04:24] LABS: Chol HDL Ratio 4.77 mg/dL (1.0-5.00); Cholesterol 143 mg/dL (0-200); HDL Cholesterol 30 mg/dL (60-100); LDL Cholesterol Calculated 88 mg/dL (50-129); LDL HDL Ratio 2.93 RATIO (0.00-3.22); Triglycerides 127 mg/dL (0-150)
[2024-08-13 04:30] LABS: Procalcitonin 1.24 ng/mL (0-0.5)
[2024-08-13] MEDS: meropenem 1,000 mg SDV 1000 MG IVP ×3 (05:09→20:28)
[2024-08-13 05:14] LABS: Folate Level 9.6 ng/mL (4.5-32.2)
[2024-08-13] MEDS: vancomycin 1,000 MG in sodium chloride 0.9% 250 ML 250 MG IV ×3 (06:31→22:12)
--- NOTE | 2024-08-13 06:51 | W.PM.OPSUD ---
Surgery/Procedure H&P Update DATE OF PROCEDURE: August 13, 2024 DATE H&P PERFORMED: 08/12/24 H&P UPDATE INFORMATION: I have reviewed H&P completed within last 30 days, I have examined patient prior to procedure, No changes to prior documentation and H&P is in [facility] EMR on date indicated CHANGES TO PREVIOUS DOCUMENTATION: No changes PRIMARY INDICATION FOR PROCEDURE: Acute osteomyelitis left great toe PLANNED PROCEDURE: Operation Date: 08/13/24 08:10 Proposed Procedures p Left Great Toe Amputation(Left) - Eduardo Rangel DPM
--- NOTE | 2024-08-13 07:26 | P.OP_ITS ---
Operative Report Date of procedure: August 13, 2024 Pre-op diagnosis: Acute osteomyelitis left great toe proximal phalanx Acute osteomyelitis left great toe distal phalanx Gangrene left great toe Idiopathic neuropathy Post-op diagnosis: Same Post-op findings: Devitalized soft tissue and bone left great toe Procedure done: Left great toe amputation Implants: 4-0 Vicryl, 4-0 nylon Specimens removed/disposition: Bone from proximal and distal phalanx sent to microbiology for Gram stain, culture and sensitivity, left great toe. Pathology: Left great toe sent to pathology for gross anatomical review Surgeon: Eduardo Rangel DPM [employer] Grade Teacher: Andrew Estimated blood loss: 10 15 IV fluids: See intraoperative documentation Urine output: None Complications: None Findings: Devitalized soft tissue and devitalized bone left great toe. Clean margins observed intraoperatively at the level of the amputation. Brief History: Rocky Watt is a 44 year old male presents with a worsening of left great toe wound over the past 2 weeks has been red and draining with foul odor, he states over the past 2 to 3 days it got more red, swollen and drainage became more intense, started feeling subjective chills, denies subjective fevers, denies lack of appetite or malaise. Patient has idiopathic neuropathy, nondiabetic. Had a superficial blister pop at the ball of his right foot denies redness or drainage. Patient has a history of osteomyelitis of the right foot. Patient states he does not go barefoot however he is been over active on his feet for long periods of time. Patient being admitted to the hospital service, greatly appreciate hospitalist for medical management WBC 10.59 ESR 15 CRP 116.1 mg/L X-ray left foot pathologic fracture of the first proximal phalanx head and erosive changes at proximal and distal phalanx left great toe consistent with osteomyelitis CT scan shows cellulitis, subcutaneous gas locules and acute osteomyelitis of the proximal and distal phalanx of the left great toe, mildly displaced fracture of the proximal phalanx head. N.p.o. at midnight Patient wishes to proceed with left great toe imitation for source control of infection. Scheduled for left great toe amputation 08/13/2024 8 AM I reviewed at length with the patient, the risks, potential complications, benefits, alternatives, expectations, and typical outcomes associated with the surgery. The risks and potential complications were explained in detail, including but not limited to infection, wound dehiscence or soft tissue complications, bleeding and hematoma, chronic edema, neuritis or nerve damage producing numbness or chronic pain, CRPS, failure to relieve pain or worsening pain, thick / painful / unsightly scar, limited motion / stiffness, malposition, delayed union, malunion, or nonunion, fracture, reaction to implants, anesthetic complications, venous thromboembolism, and deformity recurrence. I discussed the notion of no regrets with the patient as it pertains to complications and outcomes. The patient seemed to understand the nature of the proposed care and required convalescence. They asked appropriate questions, answered to their satisfaction. They are aware no guarantees can be made as to a satisfactory outcome and they understand there may be other possible unforeseen complications or outcomes not listed here that will be treated accordingly if they arise. There were no written or implied guarantees given to the patient. They gave informed consent to proceed. Procedure: Under mild sedation patient was brought to the operating room and remained on the gurney in supine position. Timeout was performed. Anesthesia was then administered by the anesthesia service. Local anesthesia injected by myself consisting of 20 cc of one-to-one mixture 1% lidocaine and 0.5% Marcaine plain in a Aranda block fashion to the left first ray. Well-padded pneumatic tourniquet was applied to the left ankle. Left lower extremity was scrubbed, prepped and draped utilizing normal aseptic technique. Left foot was then elevated and tourniquet inflated to 250 mmHg. Attention was directed to the left great toe where a full-thickness wound was appreciated plantarly at the level of the hallux interphalangeal joint communicating directly to devitalized bone at the hallux interphalangeal joint. Incision was planned out as a fishmouth incision encompassing the left first metatarsal phalangeal joint, incision was performed with #15 blade full- thickness down to bone circumferentially around the left great toe base and the left great toe was disarticulated sharply through the first metatarsal phalangeal joint and passed from the operative field, proximal and distal phalanx devitalized bone was sent to microbiology for Gram stain, culture and sensitivity, remaining left great toe sent to pathology for permanent and gross anatomical review. The incision was irrigated with copious amounts of sterile skin solution. Extensor and flexor tendons retracted and transected at their most proximal margin, all bleeders were ligated and cauterized as necessary. Viable skin flaps were appreciated intraoperatively and the head of the first metatarsal head appropriate color and density without signs of necrosis or infection. After further irrigation the incision was closed in a layered fashion. Subcutaneous tissue reapproximated with 4-0 Vicryl and skin with 4-0 and 3-0 nylon. The incision was dressed with Adaptic, sterile 4 x 4's, Kerlix and Parth wrap. Tourniquet was deflated and a prompt hyperemic response is noted to the distal digits remaining at the left foot 2, 3, 4 and 5. Patient was transferred to the PACU with vital signs stable and vascular status intact. After period of postoperative monitoring he will be transferred back to the floor to continue empiric IV antibiotics. Nonweightbearing left foot may heel touch only for transfers. Clean margins appreciated at level of the amputation intraoperatively. Would anticipate 2-week course of oral antibiotics at discharge once cultures are finalized.
--- NOTE | 2024-08-13 07:35 | ANES.PREANE2 ---
Pre-Anesthetic Assessment Height/Weight: Height 1.85 m Weight 85.82 kg Temp Pulse Resp BP Pulse Ox O2 Del Method 98.1 F 84 18 139/94 100 Room Air 08/13/24 07:18 08/13/24 07:18 08/13/24 07:18 08/13/24 07:18 08/13/24 07:18 08/13/24 07:18 Operation Date: 08/13/24 08:10 Proposed Procedures p Left Great Toe Amputation(Left) - Eduardo Rangel DPM Familial anesthetic complications: None Was Beta Beatrice taken within 24 hours: N/A Was Clonidine taken within 24 hours: N/A Last intake: Intake Last Liquid Date 08/12/24 Last Liquid Time 23:59 Last Solid Date 08/12/24 Last Solid Time 22:20 Social Tobacco and No alcohol 1 pack(s) per day Exam alert, oriented x 3, clear to auscultation bilaterally and regular rate & rhythm Airway Submandibular: within normal limits Cervical ROM: within normal limits Mallampati: Class II Dentition: chipped Comments: Comments: Very poor dentition History/ROS No significant history except as noted and No significant complaints Pulmonary None reported CV/HEM None reported Hx kidney stones Hepatic None reported GI Gastroesophageal Reflux Disease (None this am, food related) Metabolic None reported Musc/skel Lower Back Pain Neuropsych Anxiety, Depression and Neuropathy Anesthetic Plan ASA status: 2 Anesthesia: Anesthesia Evaluation, General and MAC Risk of > 500 ml blood loss (7ml/kg in children): No Medications/Allergies Home Medications Medication Instructions Recorded Confirmed Last Taken Type No Known Home Medications 05/08/23 05/08/23 Unknown History Allergies Allergy/AdvReac Type Severity Reaction Status Date / Time Penicillins Allergy ALGY-Anaphy Verified 08/12/24 16:25 laxis Current Medications Generic Name Dose Route Start Last Admin Trade Name Freq PRN Reason Stop Dose Admin Heparin Sodium (Porcine) 5,000 unit 08/12/24 20:49 08/12/24 21:45 Heparin 5,000 Unit/Ml Inj 1 Ml SUBCUT 5,000 unit Q12H JESSICA Administration Sodium Chloride 1,000 mls @ 75 mls/hr 08/12/24 20:49 08/12/24 21:44 Sodium Chloride 0.9% IV 75 mls/hr .[id number] JESSICA Administration Vancomycin HCl 1,000 mg/ 250 mls @ 250 mls/hr 08/13/24 06:30 08/13/24 06:31 Sodium Chloride IV 250 mls/hr Q8H JESSICA Administration Protocol Morphine Sulfate 2 mg 08/12/24 20:49 08/13/24 03:12 Morphine 4 Mg/Ml Sdv 1 Ml IVP 2 mg Q4H PRN Administration SEVERE PAIN Pantoprazole Sodium 40 mg 08/12/24 22:26 08/12/24 22:[address] 40 Mg Tablet PO 40 mg DAILY JESSICA Administration Data Anesthesia 08/13/24 03:50 08/13/24 03:50 Short CBC 08/12/24 08/13/24 Range/Units 18:33 03:50 WBC 10.59 10.04 (3.29-11.43) 10^3/uL Hgb 11.60 11.50 (11.27-16.99) g/dL Hct 36.5 L 35.6 L (37-53) % MCV 84.1 85.0 (82-101) fl Plt Count 250 253 (157-399) 10^3/cmm Neut % (Auto) 66.3 62.2 % Neut # (Auto) 7.03 6.25 (1.8-7.7) 10^3/uL BMP 08/12/24 08/13/24 18:33 03:50 Sodium 136 137 Potassium 3.3 L 3.7 Chloride 99 103 Carbon Dioxide 27 24 BUN 12 9 Creatinine 0.9 0.8 Glucose 116 H 118 H Calcium 8.8 8.5 Liver Function 08/12/24 08/13/24 Range/Units 18:33 03:50 Total Bilirubin 0.3 0.3 (0.15-1.2) mg/dL AST 10 11 (0-40) U/L ALT 10 7 (0-41) U/L Alkaline Phosphatase 99 102 (40-130) U/L Albumin 3.8 3.6 (3.5-5.2) g/dL Urine 08/12/24 Range/Units 22:08 Urine Color Yellow (Yellow) Urine Appearance Clear (CLEAR) Urine pH 5.5 (5-7) Ur Specific [place] 1.085 H (1.005-1.030) Urine Protein 1+ A (Negative) Urine Glucose (UA) Negative (Normal) Urine Ketones Negative (Negative) Urine Nitrate Negative (Negative) Urine Bilirubin Negative (Negative) Ur Leukocyte Esterase Negative (Negative) Urine RBC 3-5 (0-2) /hpf Urine WBC 0-5 (0-5) /hpf Coags 08/12/24 18:33 ESR 15 H C-Reactive Protein 116.1 H Microbiology 08/12/24 18:35 Blood Culture - Preliminary Blood SPECIMEN COLLECTED 08/12/24 18:33 Blood Culture - Preliminary Blood SPECIMEN COLLECTED Cardiac Studies: No Data to Display
[2024-08-13] MEDS: BUPivacaine 0.5% INJ 10 mL INJECTION (07:50)
[2024-08-13] MEDS: lidocaine 1% 10 ML INJ SUBCUT (07:50)
--- NOTE | 2024-08-13 08:30 | ANE.PACU2 ---
Inpatient post-anesthesia follow up: Airway intact: Yes Vital signs: Temperature 98.0 F Pulse Rate 72 Respiratory Rate 18 Blood Pressure 138/92 Pulse Oximetry 99 Oxygen Delivery Me thod [Rate & Room Air Delivery Changed T o] Oxygen Delivery Me thod Room Air Oxygen Flow Rate Fraction of Inspir ed Oxygen Hydration adequate: Yes Nausea and vomiting: No Pain level: 1 Mental status: Baseline
[2024-08-13] MEDS: heparin 5,000 unit/mL INJ 1 mL 5000 UNIT SUBCUT ×2 (09:44→20:28)
[2024-08-13] MEDS: pantoprazole DR 40 mg Tablet PO (09:44)
--- NOTE | 2024-08-13 12:24 | P.PN_ITS ---
Subjective 2 Subjective: Admitted overnight. Seen postoperative today. Seen with family numbers at bedside. Patient denies any nausea, vomiting, headache. Has remained hemodynamically stable and afebrile. Vitals/I&O/Wt Last Vital Signs Temp 97.7 F 08/13/24 08:41 Pulse 80 08/13/24 08:55 Resp 16 08/13/24 08:41 BP 123/70 08/13/24 08:41 Pulse Ox 94 08/13/24 08:55 O2 Del Method Room Air 08/13/24 08:55 08/12/24 08/13/24 08/13/24 22:59 06:59 14:59 Intake Total 400 / 400 780 / 1180 1250 / 1250 Output Total 900 / 900 Balance 400 / 400 -120 / 280 1240 / 1240 Weight last 48 hrs Weight 85.82 kg Weight 86.545 kg Weight 84.368 kg Physical Exam 2 Narrative: General: No acute distress, AO x3 HEENT: PERRLA, pupils bilaterally equal and reactive, pallors not present Chest: Normal vesicular breath sounds, no added sounds, equal good air entry bilaterally CVS: S1-S2 regular, no murmurs, no tachycardia, no gallops, no rubs Abdomen: Soft, nontender, no organomegaly, bowel sounds present Neuro: No focal deficits, no facial deformity, AO x3, power 5/5 in all limbs Extremity: Surgically bandaged. No soakage. 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 Post amputation. Day 0. Follow-up OR and blood cultures. Plan for continued IV antibiotics for now with possible transition to oral antibiotic depending on culture and sensitivities for at least 2 weeks postoperatively For now continue with empiric IV meropenem and vancomycin. Antibiotics as per creatinine clearance. No Zosyn as patient is allergic with anaphylaxis to penicillin. A1c normal. Appreciate podiatry recommendations. Wound care as per podiatry team. 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
[2024-08-13 12:48] LABS: Amphetamines Screen Urine Positive (Negative); Barbiturates Screen Urine Negative (Negative); Benzodiazepines Screen Urine Negative (Negative); Cocaine Screen Urine Negative (Negative); Opiate Screen Urine Positive (Negative); PCP Screen Urine Negative (Negative); THC Screen Urine Negative (Negative)
[2024-08-13] MEDS: HYDROcodone-acetaminophen 5-325 mg Tablet 1 TAB PO (15:20)
[2024-08-13 21:38] LABS: Vancomycin Trough 14.4 ug/mL (10-15)
[2024-08-14] VITALS (8 sets, daily range): BP systolic 118–149; BP diastolic 75–93; PULSE 65–79; RESP 14–20; TEMP 36.7–37.1; O2SAT 98–99
[2024-08-14 04:51] LABS: Basophils # 0.1 10^3/uL (0.0-0.1); Basophils % 0.7 %; Eosinophils # 0.8 10^3/uL (0.0-0.8); Eosinophils % 8.8 %; Hematocrit 34.2 % (37-53); Lymphocytes # 2.8 10^3/uL (0.8-4.8); Lymphocytes % 32.4 %; Mean Corpuscular HGB Conc 32.2 g/dL (30-55); Mean Corpuscular Hemoglobin 27.6 pg (27-33); Mean Corpuscular Volume 85.7 fl (82-101); Mean Platelet Volume 10.6 fL (7.4-10.4); Monocytes # 0.6 10^3/uL (0.2-0.9); Monocytes % 7.1 %; Neutrophils # 4.36 10^3/uL (1.8-7.7); Neutrophils % 50.7 %; Nucleated Red Blood Cells % 0 %; Platelet Count 251 10^3/cmm (157-399); Red Blood Count 3.99 10^6/uL (3.85-5.65); Red Cell Distribution Width 13.9 % (12.1-15.1); White Blood Count 8.61 10^3/uL (3.29-11.43)
[2024-08-14 05:00] LABS: Alanine Aminotransferase 7 U/L (0-41); Albumin Level 3.4 g/dL (3.5-5.2); Alkaline Phosphatase 102 U/L (40-130); Anion Gap 11.8 (5-19); Aspartate Amino Transferase 11 U/L (0-40); Blood Urea Nitrogen 10 mg/dL (6-20); Calcium 8.5 mg/dL (8.5-10.5); Carbon Dioxide 27 mmol/L (22-29); Chloride 102 mmol/L (98-107); Creatinine Clr Calc Pharmacy 124.7234; Globulin 3.1 g/dL (1.3-4.6); Glomerular Filtration Rate 92.1 mL/min (90-130); Glucose 110 mg/dL (65-115); Osmolality Calculated 284 mOsm/kg (285-295); Potassium 3.8 mmol/L (3.5-5.1); Sodium 137 mmol/L (136-145); Total Bilirubin 0.3 mg/dL (0.15-1.2); Total Protein 6.5 g/dL (6.6-8.7)
[2024-08-14] MEDS: vancomycin 1,000 MG in sodium chloride 0.9% 250 ML 250 MG IV (06:25)
[2024-08-14] MEDS: meropenem 1,000 mg SDV 1000 MG IVP ×3 (06:26→20:41)
--- NOTE | 2024-08-14 08:21 | P.PN_ITS ---
Subjective 2 Subjective: Mr. Watt seen bedside this a.m., denies any acute events overnight, no complaints of left foot pain. Surgical dressings are intact. Tolerating regular diet. No other complaints. Patient denies any subjective nausea, vomiting, fever, chills, shortness of breath or chest pain. Vitals/I&O/Wt Last Vital Signs Temp 98.0 F 08/14/24 07:47 Pulse 72 08/14/24 07:47 Resp 18 08/14/24 07:47 BP 138/92 08/14/24 07:47 Pulse Ox 99 08/14/24 07:47 O2 Del Method Room Air 08/14/24 07:47 08/13/24 08/14/24 08/14/24 22:59 06:59 14:59 Intake Total 730 / 1980 250 / 2230 610 / 610 Output Total 825 / 835 600 / 600 Balance 730 / 1970 -575 / 1395 Weight last 48 hrs Weight 195 lb Weight 189 lb 3.2 oz Weight 190 lb 12.8 oz Weight 186 lb Physical Exam 2 Narrative: GENERAL: Patient is alert and oriented ?3 and in no acute distress. The following is a focused bilateral lower extremity exam. Accompanied by his and daughter. VASCULAR: Dorsalis pedis palpable +2 left and right foot. Posterior tibial arteries palpable +2. Capillary refill time less than 3 seconds to the distal hallux right foot and delayed left foot greater than 5 seconds. Calf is supple and nontender proximally and distally. Pedal hair growth present. NEUROLOGICAL: Protective sensation intact 0/10 sites, tested with [employer] monofilament to bilateral feet. DERMATOLOGICAL: Surgical dressing is intact at left foot without strikethrough bleeding, no ascending lymphangitic streaking or cellulitis. MUSCULOSKELETAL: Status post left great toe amputation at metatarsal phalangeal joint. 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 Plan 44-year-old male with idiopathic neuropathy presents with gangrene left great toe. Status post left great toe amputation through first metatarsal phalangeal joint with primary closure, date of operation 08/13/2024 Surgical dressing is clean, dry and intact Nonweightbearing left foot may heel touch on the left foot for transfers with postop shoe and assistance of a walker. Continuing empiric IV antibiotics, may narrow once cultures yield further information. Level of amputation was curative of osteomyelitis, will need to cover for soft tissue moving forward. Anticipating 2 weeks of oral antibiotics at discharge pending sensitivities and oral options. Attestations 2 Medical Necessity Statement*: Bone culture and wound culture pending, status post left great toe amputation secondary to gangrene and acute osteomyelitis. Requiring continued IV antibiotics until cultures are available for review. 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
[2024-08-14] MEDS: heparin 5,000 unit/mL INJ 1 mL 5000 UNIT SUBCUT ×2 (08:35→20:41)
[2024-08-14] MEDS: pantoprazole DR 40 mg Tablet PO (08:35)
--- NOTE | 2024-08-14 12:03 | P.PN_ITS ---
Subjective 2 Subjective: No acute events overnight. Seen with family at bedside. Denies any nausea, vomiting, headache. Pain well-controlled. Dressing changed as per podiatry team early in the morning. Vitals/I&O/Wt Last Vital Signs Temp 98.0 F 08/14/24 07:47 Pulse 72 08/14/24 07:47 Resp 18 08/14/24 07:47 BP 138/92 08/14/24 07:47 Pulse Ox 99 08/14/24 07:47 O2 Del Method Room Air 08/14/24 07:47 08/13/24 08/14/24 08/14/24 22:59 06:59 14:59 Intake Total 0 / 1979 250 / 2230 610 / 610 Output Total 825 / 835 600 / 600 Balance 730 / 1970 -575 / 1395 Weight last 48 hrs Weight 88.451 kg Weight 85.82 kg Weight 86.545 kg Weight 84.368 kg Physical Exam 2 Narrative: General: No acute distress, AO x3 HEENT: PERRLA, pupils bilaterally equal and reactive, pallors not present Chest: Normal vesicular breath sounds, no added sounds, equal good air entry bilaterally CVS: S1-S2 regular, no murmurs, no tachycardia, no gallops, no rubs Abdomen: Soft, nontender, no organomegaly, bowel sounds present Neuro: No focal deficits, no facial deformity, AO x3, power 5/5 in all limbs Extremity: Surgically bandaged. No soakage. 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 Confirmation test sent. Plan 44-year-old man presenting with worsening lower extremity wound found to have cellulitis along with left great toe acute osteomyelitis. Post amputation. Day 0. Follow-up OR and blood cultures. Plan for continued IV antibiotics for now with possible transition to oral antibiotic depending on culture and sensitivities for at least 2 weeks postoperatively For now continue with empiric IV meropenem and vancomycin. Antibiotics as per creatinine clearance. No Zosyn as patient is allergic with anaphylaxis to penicillin. A1c normal. Appreciate podiatry recommendations. Wound care as per podiatry team. Full code Regular diet Protonix OPD prophylaxis Heparin 5000 Q12 hourly for DVT prophylaxis Plan for the day: Follow-up cultures. Dressing as per podiatry team. Continue with broad-spectrum IV antibiotics for now. Check MRSA swab. 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
[2024-08-14] MEDS: vancomycin 1,250 MG/250 ML PIGGYBACK 166.67 MG IV (14:30)
[2024-08-14 15:19] LABS: MRSA PCR OZH (swab) NOT DETECTED (Negative)
[2024-08-14] MEDS: morphine 4 mg/mL SDV 1 mL 2 MG IVP (18:42)
[2024-08-14] MEDS: vancomycin 1,250 MG/250 ML PIGGYBACK 166 MG IV (22:27)
[2024-08-15] VITALS (8 sets, daily range): BP systolic 140–168; BP diastolic 89–104; PULSE 74–96; RESP 15–18; TEMP 36.5–37.2; O2SAT 97–100; BMI 25.9
[2024-08-15] MEDS: meropenem 1,000 mg SDV 1000 MG IVP ×2 (04:38→14:10)
[2024-08-15 04:46] LABS: Basophils # 0.1 10^3/uL (0.0-0.1); Eosinophils # 0.9 10^3/uL (0.0-0.8); Eosinophils % 11.1 %; Hematocrit 38.3 % (37-53); Lymphocytes # 2.9 10^3/uL (0.8-4.8); Lymphocytes % 35.6 %; Mean Corpuscular HGB Conc 31.9 g/dL (30-55); Mean Corpuscular Hemoglobin 27.2 pg (27-33); Mean Corpuscular Volume 85.5 fl (82-101); Mean Platelet Volume 10.3 fL (7.4-10.4); Monocytes # 0.5 10^3/uL (0.2-0.9); Monocytes % 6.3 %; Neutrophils # 3.75 10^3/uL (1.8-7.7); Neutrophils % 45.8 %; Nucleated Red Blood Cells % 0 %; Platelet Count 300 10^3/cmm (157-399); Red Blood Count 4.48 10^6/uL (3.85-5.65); Red Cell Distribution Width 13.7 % (12.1-15.1)
[2024-08-15] MEDS: morphine 4 mg/mL SDV 1 mL 2 MG IVP (04:48)
[2024-08-15 05:09] LABS: Alanine Aminotransferase 7 U/L (0-41); Albumin Level 3.3 g/dL (3.5-5.2); Alkaline Phosphatase 102 U/L (40-130); Aspartate Amino Transferase 9 U/L (0-40); Blood Urea Nitrogen 11 mg/dL (6-20); Calcium 8.5 mg/dL (8.5-10.5); Carbon Dioxide 26 mmol/L (22-29); Chloride 102 mmol/L (98-107); Creatinine Clr Calc Pharmacy 141.9939; Globulin 3.7 g/dL (1.3-4.6); Glomerular Filtration Rate 105.5 mL/min (90-130); Glucose 117 mg/dL (65-115); Osmolality Calculated 284 mOsm/kg (285-295); Sodium 137 mmol/L (136-145); Total Bilirubin 0.2 mg/dL (0.15-1.2)
[2024-08-15 05:12] LABS: Anion Gap 13.2 (5-19); Potassium 4.2 mmol/L (3.5-5.1)
[2024-08-15] MEDS: vancomycin 1,250 MG/250 ML PIGGYBACK 166 MG IV (06:15)
[2024-08-15] MEDS: heparin 5,000 unit/mL INJ 1 mL 5000 UNIT SUBCUT (09:15)
[2024-08-15] MEDS: HYDROcodone-acetaminophen 5-325 mg Tablet 1 TAB PO (09:16)
[2024-08-15] MEDS: pantoprazole DR 40 mg Tablet PO (09:16)
--- NOTE | 2024-08-15 12:09 | PM.DCS ---
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 He underwent amputation with podiatry. Margins were clear. Intraoperative cultures were obtained. Patient was discharged home on 2 weeks of oral antibiotics and to follow-up with podiatry as an outpatient. He was placed on Levaquin. Discussed with podiatry. Discussed with patient in detai Physical Exam Narrative: General: No acute distress, AO x3 HEENT: PERRLA, pupils bilaterally equal and reactive, pallors not present Chest: Normal vesicular breath sounds, no added sounds, equal good air entry bilaterally CVS: S1-S2 regular, no murmurs, no tachycardia, no gallops, no rubs Abdomen: Soft, nontender, no organomegaly, bowel sounds present Neuro: No focal deficits, no facial deformity, AO x3, power 5/5 in all limbs Extremity: Surgically bandaged. No soakage. Discharge Data Studies Completed and Pending Completed Studies During Hospitalization Category Date Time Status CT foot LT w con [id number] Stat Cat Scan 08/12/24 18:29 Completed XR foot LT min 3V* [id number] Stat Exams 08/12/24 17:48 Completed Pending at discharge Category Date Time Status Amphetamine Confirmation, GC/M Routine Lab 08/14/24 16:10 Received Blood Culture Stat Lab 08/12/24 18:35 Results Tissue Culture and Gram Stain Routine Lab 08/13/24 08:00 Results Vancomycin Trough Routine Lab 08/15/24 13:30 Ordered Wound Culture and Gram Stain Routine Lab 08/12/24 20:14 Results Pathology: Surgical [PTH] Routine Pth 08/13/24 08:10 Received Radiology Impressions Foot X-Ray 08/12/24 17:48 IMPRESSION: 1. Soft tissue swelling and ulceration of the great toe with findings compatible with acute osteomyelitis of the subjacent bone. 2. Mildly displaced oblique fracture of the 1st proximal phalanx. Foot CT 08/12/24 18:29 IMPRESSION: 1. Cellulitis of the great toe with areas of ulceration. Subcutaneous gas locules may be related to ulceration, though gas producing organisms are not excluded. 2. Findings compatible with acute osteomyelitis involving the proximal and distal phalanges of the great toe. 3. Mildly displaced fracture of the 1st proximal phalanx. 4. Soft tissue edema throughout the foot. Laboratory Results WBC 8.20 10^3/uL (3.29-11.43) 08/15/24 04:24 RBC 4.48 10^6/uL (3.85-5.65) 08/15/24 04:24 Hgb 12.20 g/dL (11.27-16.99) 08/15/24 04:24 Hct 38.3 % (37-53) 08/15/24 04:24 MCV 85.5 fl (82-101) 08/15/24 04:24 MCH 27.2 pg (27-33) 08/15/24 04:24 MCHC 31.9 g/dL (30-55) 08/15/24 04:24 RDW 13.7 % (12.1-15.1) 08/15/24 04:24 Plt Count 300 10^3/cmm (157-399) 08/15/24 04:24 MPV 10.3 fL (7.4-10.4) 08/15/24 04:24 Neut % (Auto) 45.8 % 08/15/24 04:24 Lymph % (Auto) 35.6 % 08/15/24 04:24 [place] % (Auto) 6.3 % 08/15/24 04:24 Eos % (Auto) 11.1 % 08/15/24 04:24 Baso % (Auto) 1.0 % 08/15/24 04:24 Neut # (Auto) 3.75 10^3/uL (1.8-7.7) 08/15/24 04:24 Lymph # (Auto) 2.9 10^3/uL (0.8-4.8) 08/15/24 04:24 [place] # (Auto) 0.5 10^3/uL (0.2-0.9) 08/15/24 04:24 Eos # (Auto) 0.9 10^3/uL (0.0-0.8) H 08/15/24 04:24 Baso # (Auto) 0.1 10^3/uL (0.0-0.1) 08/15/24 04:24 Nucleated RBC % (auto) 0 % 08/15/24 04:24 Nucleated RBCs # 0.0 /100WBC 08/15/24 04:24 ESR 15 mm/hr (0-10) H 08/12/24 18:33 Sodium 137 mmol/L (136-145) 08/15/24 04:24 Potassium 4.2 mmol/L (3.5-5.1) 08/15/24 04:24 Chloride 102 mmol/L (98-107) 08/15/24 04:24 Carbon Dioxide 26 mmol/L (22-29) 08/15/24 04:24 Anion Gap 13.2 (5-19) 08/15/24 04:24 BUN 11 mg/dL (6-20) 08/15/24 04:24 Creatinine 0.8 mg/dL (0.7-1.2) 08/15/24 04:24 GFR Calculation 105.5 mL/min (90-130) 08/15/24 04:24 Glucose 117 mg/dL (65-115) H 08/15/24 04:24 Estimat Average Glucose 123 08/13/24 03:50 Hemoglobin A1c 5.9 % (4.0-6.0) 08/13/24 03:50 Calculated Osmolality 284 mOsm/kg (285-295) L 08/15/24 04:24 Lactic Acid 1.0 mmol/L (0.5-2.2) 08/12/24 18:33 Calcium 8.5 mg/dL (8.5-10.5) 08/15/24 04:24 Phosphorus 2.6 mg/dL (2.5-4.5) 08/13/24 03:50 Magnesium 1.8 mg/dL (1.7-2.3) 08/13/24 03:50 Iron 16 ug/dL (59-158) L 08/12/24 18:33 TIBC 249 mcg/dl 08/12/24 18:33 % Saturation 6.4 % (20-50) L 08/12/24 18:33 Unsat Iron Binding 233 ug/dL (112-347) 08/12/24 18:33 Total Bilirubin 0.2 mg/dL (0.15-1.2) 08/15/24 04:24 AST 9 U/L (0-40) 08/15/24 04:24 ALT 7 U/L (0-41) 08/15/24 04:24 Alkaline Phosphatase 102 U/L (40-130) 08/15/24 04:24 C-Reactive Protein 116.1 mg/L (0.0-4.9) H 08/12/24 18:33 Total Protein 7.0 g/dL (6.6-8.7) 08/15/24 04:24 Albumin 3.3 g/dL (3.5-5.2) L 08/15/24 04:24 Globulin 3.7 g/dL (1.3-4.6) 08/15/24 04:24 Triglycerides 127 mg/dL (0-150) 08/13/24 03:50 Cholesterol 143 mg/dL (0-200) 08/13/24 03:50 LDL Cholesterol, Calc 88 mg/dL (50-129) 08/13/24 03:50 HDL Cholesterol 30 mg/dL (60-100) L 08/13/24 03:50 LDL/HDL Ratio 2.93 RATIO (0.00-3.22) 08/13/24 03:50 Cholesterol/HDL Ratio 4.77 mg/dL (1.0-5.00) 08/13/24 03:50 Vitamin B12 284 pg/mL (232-1245) 08/12/24 18:33 Folate 9.6 ng/mL (4.5-32.2) 08/13/24 03:50 Procalcitonin 1.24 ng/mL (0-0.5) H 08/13/24 03:50 TSH 2.90 uIU/mL (0.27-4.20) 08/12/24 18:33 Urine Color Yellow (Yellow) 08/12/24 22:08 Urine Appearance Clear (CLEAR) 08/12/24 22:08 Urine pH 5.5 (5-7) 08/12/24 22:08 Ur Specific [place] 1.085 (1.005-1.030) H 08/12/24 22:08 Urine Protein 1+ (Negative) A 08/12/24 22:08 Urine Glucose (UA) Negative (Normal) 08/12/24 22:08 Urine Ketones Negative (Negative) 08/12/24 22:08 Urine Blood Negative (Negative) 08/12/24 22:08 Urine Nitrate Negative (Negative) 08/12/24 22:08 Urine Bilirubin Negative (Negative) 08/12/24 22:08 Urine Urobilinogen 1.0 mg/dL (Negative) 08/12/24 22:08 Ur Leukocyte Esterase Negative (Negative) 08/12/24 22:08 Urine RBC 3-5 /hpf (0-2) 08/12/24 22:08 Urine WBC 0-5 /hpf (0-5) 08/12/24 22:08 Ur Squamous Epith Cells 0-5 /hpf (0-5) 08/12/24 22:08 Amorphous Sediment Not Reportable 08/12/24 22:08 Urine Bacteria None seen /hpf (NONE) 08/12/24 22:08 Hyaline Casts 0-4 /lpf H 08/12/24 22:08 Urine Sperm 1+ /hpf 08/12/24 22:08 Nasal MRSA (PCR) Not detected (Negative) 08/14/24 14:00 Vancomycin Trough 14.4 ug/mL (10-15) 08/13/24 21:14 Urine Opiates Screen Positive ng/mL (Negative) H 08/12/24 22:08 Ur Barbiturates Screen Negative ng/mL (Negative) 08/12/24 22:08 Ur Phencyclidine Scrn Negative ng/mL (Negative) 08/12/24 22:08 Ur Amphetamines Screen Positive ng/mL (Negative) H 08/12/24 22:08 U Benzodiazepines Scrn Negative ng/mL (Negative) 08/12/24 22:08 Urine Cocaine Screen Negative ng/mL (Negative) 08/12/24 22:08 U Marijuana (THC) Screen Negative ng/mL (Negative) 08/12/24 22:08 Vitals Last Vital Signs Temp 98.2 F 08/15/24 11:04 Pulse 95 08/15/24 11:04 Resp 16 08/15/24 11:04 BP 154/104 08/15/24 11:04 Pulse Ox 100 08/15/24 11:04 O2 Del Method Room Air 08/15/24 11:04 Discharge Plan Discharge Patient Disposition: Home Condition: Stable Prescriptions: New levofloxacin 750 mg tablet 750 mg PO DAILY 14 Days Qty: 14 0RF Discharge Orders: Discharge Order (Routine); Ordered 08/15/24 Ordered By: Radha Lee Referrals: Eduardo Rangel DPM [Physician] - 08/19/24 10:30 am () Yany Dominguez FNP [Referring] - 08/24/24 8:45 am (Please arrive at 08:45 to complete new patient paperwork as well as the sliding scale. You will need to bring a copy of your current taxes for this application. If you do not have a copy of your current taxes, please call the office to inquire what other document you can bring in place of to complete the application. You may also curing pickling packer the new patient packet and sliding scale application and complete in advance if you wish. ) Discharge Diet: Regular Discharge Activity: Resume usual activity Patient Instructions: Doxycycline (By mouth), Acute Wound Care (DC), Opioid Safety, Post Anesthesia Care Activity Restrictions/Additional Instructions: Instructions from Dr. Rangel Please keep your current dressing clean, dry and intact until your follow-up visit this 08/19/2024 10:30 AM in podiatry clinic Heel touch only for short transfers with postop shoe at all times left foot. Otherwise rest and elevate. Will take at least 2 weeks for amputation site to heal. 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
--- NOTE | 2024-08-15 12:27 | P.PN_ITS ---
Subjective 2 Subjective: Patient seen bedside this morning, anticipating going home, denies any pain at the left foot. Patient denies any subjective nausea, vomiting, fever, chills, shortness of breath or chest pain. Vitals/I&O/Wt Last Vital Signs Temp 98.2 F 08/15/24 11:04 Pulse 95 08/15/24 11:04 Resp 16 08/15/24 11:04 BP 154/104 08/15/24 11:04 Pulse Ox 100 08/15/24 11:04 O2 Del Method Room Air 08/15/24 11:04 08/14/24 08/15/24 08/15/24 22:59 06:59 14:59 Intake Total 970 / 1940 250 / 2190 368 / 368 Output Total 500 / 1700 500 / 2200 200 / 200 Balance 470 / 240 -250 / -10 168 / 168 Weight last 48 hrs Weight 196 lb 4.8 oz Weight 196 lb 4.8 oz Weight 200 lb 8 oz Weight 195 lb Physical Exam 2 Narrative: GENERAL: Patient is alert and oriented ?3 and in no acute distress. The following is a focused bilateral lower extremity exam. Accompanied by his and daughter. VASCULAR: Dorsalis pedis palpable +2 left and right foot. Posterior tibial arteries palpable +2. Capillary refill time less than 3 seconds to the distal hallux right foot and delayed left foot greater than 5 seconds. Calf is supple and nontender proximally and distally. Pedal hair growth present. NEUROLOGICAL: Protective sensation intact 0/10 sites, tested with [place] monofilament to bilateral feet. DERMATOLOGICAL: Incision site left foot left great toe amputation is well coapted with sutures intact and no GEOVANY incision erythema, warmth, drainage or dehiscence. MUSCULOSKELETAL: Status post left great toe amputation at metatarsal phalangeal joint. 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 Plan 44-year-old male with idiopathic neuropathy presents with gangrene left great toe. Status post left great toe amputation through first metatarsal phalangeal joint with primary closure, date of operation 08/13/2024 Surgical dressing is clean, dry and intact Nonweightbearing left foot may heel touch on the left foot for transfers with postop shoe and assistance of a walker. Level of amputation was curative of osteomyelitis, will need to cover for soft tissue moving forward. Both wound culture and bone culture grew strep group C. Discharge 2 weeks oral antibiotics doxycycline 100 mg twice daily for 14 days. 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
[2024-08-15 14:15] LABS: Vancomycin Trough 21.5 ug/mL (10-15)
== END 2024-08-15 14:55 | disposition home or self-care (01) | DRG 504 ==
LOC: ER 18:42 → MEDSURG 19:44
PROVIDERS: Podiatrist Foot & Ankle Surgery; Admitting Provider Student in an Organized Health Care Education/Training Program; Emergency Provider Nurse Practitioner Family; Visit Provider Internal Medicine
PROC: 0Y6Q0Z0 Detachment at Left 1st Toe, Complete, Open Approach (ICD-10-PCS; principal; 2024-08-13 08:00)
DX: M86.172 Other acute osteomyelitis, left ankle and foot (principal); I96 Gangrene, not elsewhere classified; L03.116 Cellulitis of left lower limb; L97.524 Non-pressure chronic ulcer of other part of left foot with necrosis of bone; G62.9 Polyneuropathy, unspecified; F15.10 Other stimulant abuse, uncomplicated; K21.9 Gastro-esophageal reflux disease without esophagitis
CPT/HCPCS: 36415; 73630; 73701; 80053; 80061; 80202; 80306; 80324; 80359; 81001; 82607; 82746; 83036; 83540; 83550; 83605; 83735; 84100; 84145; 84443; 85025; 85651; 86140; 86403; 87040; 87070; 87075; 87077; 87176; 87186; 87205; 88305; 88311; 94664; 96365; 96366; 96372; 96375; 99285; J1644; J1956; J2185; J2270; J2704; J3010; J3370; J3490; J7030; J7050

== ENCOUNTER → 2025-09-07 13:45 | Outpatient (BNVA) | payer MEDICAID, SELFPAY | PROVIDERS: PCP Family Medicine; Visit Provider Family Medicine | DX: Z13.6 Encounter for screening for cardiovascular disorders (principal) | CPT/HCPCS: 80053; 80061; 83036; 83721; 84439; 84443; 85025 ==